=== PATIENT | female | born 1980 | race Caucasian/White ===

== ENCOUNTER 2016-06-15 21:21 | Emergency (ER) | payer MEDICAID ==
[~2016-06-15 21:21] MED LIST: ONDA1TAB16 PO; SSD1CRE TOP
[2016-06-15 21:23] VITALS: BP 142/85; PULSE 98; RESP 15; TEMP 98.3; O2SAT 98
== END 2016-06-15 22:02 | disposition left against medical advice (07) ==
LOC: NED 21:55
DX: Z53.21 Procedure and treatment not carried out due to patient leaving prior to being seen by health care provider (principal)
CPT/HCPCS: 99281

== ENCOUNTER 2016-09-29 14:48 | Emergency (ER) | payer SELFPAY ==
[~2016-09-29] VITALS: Ht 170.2 cm; Wt 90.0 kg
[2016-09-29 14:49] VITALS: BP 138/73; PULSE 103; RESP 14; TEMP 99; O2SAT 96
--- NOTE | 2016-09-29 15:00 | PD ---
Physical Exam Date Seen by Provider: September 29, 2016 Time Seen by Provider: 14:58 Narrative Pt presents with right lower abdominal pain, vaginal discharge, bleeding with intercourse. Symptoms started 2 weeks ago. Pt reports frequency but no dysuria. VSS, awaiting bed placement. Data Data Last Documented VS Vital Signs Date Time Temp Pulse Resp B/P Pulse Ox O2 Delivery O2 Flow Rate FiO2 09/29/16 14:49 99.0 103 14 138/73 96 MDM Supervised Visit with ELAINE: Florence Girard September 29, 2016 15:00
--- NOTE | 2016-09-29 16:25 | PD ---
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 35-year-old female with history of tubal ligation presents for evaluation. She reports that for the past year she has not been sexually active with her because he was away at rehabilitation. In July the began having sexual relations again. For the past 2 weeks she's been having some pain with intercourse, some spotting with intercourse, as well as white vaginal discharge and right sided pelvic pain. Pain is an aching pain that is constant. She endorses increased urinary frequency as well. Denies any dysuria, flank pain, fevers or chills, nausea or vomiting. Denies any other sexual partners. She has no other complaints at this time. 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) Diminished Hearing: No Diverticulitis: Yes Gastrointestinal Disorders: Yes (HX OF CROHNS DISEASE , ULCERATIVE COLITIS ) Hiatal Hernia: Yes Hypertension: Yes Inguinal Hernia: Yes Kidney Stones: Yes Psychiatric: Yes Reproductive: Yes Immunizations Current: Yes Ulcer: Yes Tetanus Vaccination: > 5 Years Influenza Vaccination: No ?: Not LMP: 08/24/16 : 6 Para: 3 Miscarriage: 2 : 1 Ovarian Cysts: Yes Dilation and Curettage (D&C): Yes Tubal Ligation: Yes (2011) Past Surgical History Abdominal Surgery: Yes (HERNIA REPAIR- NOVEMBER 2012) Cholecystectomy: Yes Gynecologic Surgery: Yes (D&C) Other Surgery: Yes (D&C ) Social History Alcohol Use: No Tobacco Use: Yes (1 PPD) Substance Use: No Allergies-Medications (Allergen,Severity, Reaction): Coded Allergies: No Known Allergies (Verified , 09/29/16) Reported Meds & Prescriptions Reported Meds & Active Scripts Active Fluconazole 150 Mg Tab 150 Mg PO ONCE Review of Systems Except as stated in HPI: all other systems reviewed are Neg Physical Exam Narrative GENERAL: Well-developed well-nourished female in no acute distress SKIN: Warm and dry. HEAD: Atraumatic. Normocephalic. EYES: Pupils equal and round. No scleral icterus. No injection or drainage. ENT: No nasal bleeding or discharge. Mucous membranes pink and moist. NECK: Trachea midline. No JVD. CARDIOVASCULAR: Regular rate and rhythm. No murmur appreciated. RESPIRATORY: No accessory muscle use. Clear to auscultation. Breath sounds equal bilaterally. GASTROINTESTINAL: Abdomen soft, minimal tenderness to palpation in the right lower quadrant without guarding. Pelvic examination performed in the presence of a female nurse: There is some yellow discharge noted in the vaginal canal. There is no cervical abnormality. There is no cervical motion tenderness. There is mild suprapubic and right adnexal tenderness without palpable mass. MUSCULOSKELETAL: No obvious deformities. NEUROLOGICAL: Awake and alert. No obvious cranial nerve deficits. Motor grossly within normal limits. Normal speech. PSYCHIATRIC: Appropriate mood and affect; insight and judgment normal. Data Data Last Documented VS Vital Signs Date Time Temp Pulse Resp B/P Pulse Ox O2 Delivery O2 Flow Rate FiO2 09/29/16 14:49 99.0 103 14 138/73 96 Orders Gc And Chlamydia Pcr (09/29/16 16:21) Wet Prep Profile (09/29/16 16:21) Urinalysis - C+S If Indicated (09/29/16 16:21) Ed Urine Pregnancytest Poc (09/29/16 16:21) Azithromycin Powd Pack (Zithromax Powd P (09/29/16 17:15) Ceftriaxone Inj (Rocephin Inj) (09/29/16 17:15) Lidocaine 1% Inj (50 Ml) (Xylocaine 1% I (09/29/16 17:15) Labs Laboratory Tests Test 09/29/16 16:30 Urine Color YELLOW Urine Turbidity CLEAR Urine pH 5.5 Urine Specific [place] 1.027 Urine Protein TRACE mg/dL Urine Glucose (UA) NEG mg/dL Urine Ketones NEG mg/dL Urine Occult Blood NEG Urine Nitrite NEG Urine Bilirubin NEG Urine Urobilinogen 2.0 MG/DL Urine Leukocyte Esterase NEG Urine RBC 1 /hpf Urine WBC 1 /hpf Urine Squamous Epithelial 2 /hpf Cells Urine Mucus FEW /lpf Microscopic Urinalysis Comment CULT NOT INDICATED Clue Cells (Wet Prep) NONE SEEN Vaginal Trichomonas (Wet Prep) NONE SEEN Vaginal Yeast (Wet Prep) NONE SEEN MDM Medical Decision Making Medical Screen Exam Complete: Yes Emergency Medical Condition: Yes Medical Record Reviewed: Yes Differential Diagnosis Cervicitis, cervical cancer, inflammatory disease, vaginitis, vaginosis, tubo- ovarian abscess, ectopic , cystitis, ovarian torsion Narrative Course 35-year-old female presents with 2 weeks of painful intercourse, some spotting during intercourse, right-sided pelvic pain, white vaginal discharge. This is in the setting of having recently began a sexual relationship with her again starting in July. Her abdomen is soft with minimal tenderness to palpation right lower quadrant. I don't suspect ovarian torsion or appendicitis. Pelvic examination is reassuring. She did have some yellow discharge. Wet prep is negative. Urinalysis is negative. Urine test is negative. Chlamydia and gonorrhea are pending. She will be treated with Rocephin and azithromycin pending results. She is requesting a prescription for fluconazole to prevent yeast infection. Recommended outpatient follow-up with an ENAMEL BUFFER. She is stable for discharge. Diagnosis Primary Impression: Dyspareunia in female Additional Impression: Vaginal discharge Referrals: [facility] Additional Instructions: Follow-up with an ENAMEL BUFFER for further outpatient testing. Return for any emergent medical conditions. Med/Other Pt SpecificInfo: Prescription(s) given Scripts Fluconazole 150 Mg [id number] Mg PO ONCE #1 TAB Ref 0 Prov:Brooke Sorenson DO 09/29/16 Disposition: 01 DISCHARGE HOME Condition: Stable Betito Collins September 29, 2016 16:25
[2016-09-29 17:13] LABS: BLOOD, URINE NEG (NEG); COMMENT (UR) CULT NOT INDICATED; CULTURE IF INDICATED CULT NOT INDICATED; GLUCOSE,URINE NEG (NEG); KETONE, URINE NEG (NEG); MUCUS URINE FEW /lpf (OCC); NITRITE,URINE NEG (NEG); PH, URINE 5.5 (5.0-8.5); SQUAMOUS EPITHELIAL CELL URINE 2 /hpf (0-5); URINE COLOR YELLOW (YELLW/STRAW)
[2016-09-29] MEDS ORDERED: AZITHROMYCIN PWD FOR SUSP 1 GM PACKET PO ONE (17:15)
[2016-09-29] MEDS ORDERED: cefTRIAXone 250 MG VIAL IM ONE (17:15)
[2016-09-29] MEDS ORDERED: LIDOCAINE HCL 1% 50 ML VIAL IM ONE (17:15)
[2016-09-29] MEDS ORDERED: FLUC150T PO (17:22)
[2016-09-29 18:22] VITALS: BP 133/70
[2016-09-29 19:12] LABS: CHLAMYDIA PCR NOT DETECTED (NOT DETECT); NEISSERIA PCR NOT DETECTED (NOT DETECT)
== END 2016-09-29 18:23 | disposition home or self-care (01) ==
LOC: NEPD 14:48
DX: N94.10 Unspecified dyspareunia (principal); I10 Essential (primary) hypertension; K50.90 Crohn's disease, unspecified, without complications; F17.210 Nicotine dependence, cigarettes, uncomplicated
CPT/HCPCS: 81001; 84703; 87210; 87491; 87591; 96372; 99284; J0696

== ENCOUNTER 2016-11-11 10:58 | Emergency (ER) | payer SELFPAY ==
[~2016-11-11] VITALS: Ht 170.2 cm; Wt 103.0 kg
[~2016-11-11 10:58] MED LIST changes: +FLUC150T PO; -ONDA1TAB16 PO; -SSD1CRE TOP
[2016-11-11 11:00] VITALS: BP 134/79; PULSE 85; RESP 15; TEMP 98.4; O2SAT 98
[2016-11-11] MEDS ORDERED: CIPR0.2S RIGHT EAR (11:17)
--- NOTE | 2016-11-11 11:21 | PD ---
HPI Chief Complaint: ENT Complaint Time Seen by Provider: 11:05 Travel History International Travel<30 days: No Contact w/Intl Traveler<30days: No Traveled to known affect area: No History of Present Illness HPI 36-year-old female presents to the emergency room for evaluation of right ear pain, drainage, and decreased hearing for the past week. Patient states 2 weeks ago she went swimming in the ocean and felt as though was stuck in her ear immediately afterward. States one week later, she developed clear drainage that has since turned foul smelling and purulent. Patient woke up this morning with a large amount of drainage on her pillow. States it is constant. She has associated 6/10 pain. She has been taking ibuprofen for pain with minimal relief in symptoms. Patient denies fever, chills, nausea, vomiting, or any other upper respiratory symptoms. 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) Diminished Hearing: No Diverticulitis: Yes Gastrointestinal Disorders: Yes (HX OF CROHNS DISEASE , ULCERATIVE COLITIS ) Hiatal Hernia: Yes Hypertension: Yes Inguinal Hernia: Yes Kidney Stones: Yes Psychiatric: Yes Reproductive: Yes Immunizations Current: Yes Ulcer: Yes Tetanus Vaccination: > 5 Years Influenza Vaccination: Yes ?: Not LMP: NOW : 6 Para: 3 Miscarriage: 2 : 1 Ovarian Cysts: Yes Dilation and Curettage (D&C): Yes Tubal Ligation: Yes (2011) Past Surgical History Abdominal Surgery: Yes (HERNIA REPAIR- NOVEMBER 2012) Cholecystectomy: Yes Gynecologic Surgery: Yes (D&C) Other Surgery: Yes (D&C ) Social History Alcohol Use: No Tobacco Use: Yes (1 PPD) Substance Use: No Allergies-Medications (Allergen,Severity, Reaction): Coded Allergies: No Known Allergies (Verified , 11/11/16) Reported Meds & Prescriptions Reported Meds & Active Scripts Active Ciprofloxacin Otic Drops 0.2% Soln 0.25 Ml RIGHT EAR BID Review of Systems Except as stated in HPI: all other systems reviewed are Neg Physical Exam Narrative GENERAL: Well-nourished, well-developed female in no acute distress. Afebrile. Ambulatory. SKIN: Focused skin assessment warm/dry. HEAD: Normocephalic. EYES: No scleral icterus. No injection or drainage. EARS: Bilateral pinnae within normal limits. Left external canal unremarkable, tympanic membrane without erythema, dullness or perforation. Right external canal is mildly edematous with mild to moderate drainage. Tympanic membrane is dull but not erythematous or perforated. NECK: Supple, trachea midline. No JVD or lymphadenopathy. CARDIOVASCULAR: Regular rate and rhythm without murmurs, gallops, or rubs. RESPIRATORY: Breath sounds equal bilaterally. No accessory muscle use. Data Data Last Documented VS Vital Signs Date Time Temp Pulse Resp B/P Pulse Ox O2 Delivery O2 Flow Rate FiO2 11/11/16 11:00 98.4 85 15 134/79 98 MDM Medical Decision Making Medical Screen Exam Complete: Yes Emergency Medical Condition: Yes Medical Record Reviewed: Yes Differential Diagnosis Otitis externa, eustachian tube dysfunction, perforation, otitis media Narrative Course 36-year-old female presents to the emergency room for evaluation of right ear pain, drainage, and decreased hearing for the past week. Patient states symptoms started slightly 2 weeks ago after swimming in the ocean and worsened. No systemic signs of infection. Vital signs stable. Patient is mild to moderate drainage on exam. External canal is slightly edematous, tympanic membrane is intact but dull. Patient discharged with ciprofloxacin eardrops and told to follow-up with a primary care physician or return for worsening symptoms. She understands and agrees to plan. Diagnosis Primary Impression: Right otitis externa Qualified Code: H60.331 - Acute swimmer's ear of right side Referrals: Ear / Nose / Throat Specialist Primary Care Physician Patient Instructions: General Instructions, Otitis Externa (ED) Additional Instructions: Rest and drink plenty of fluids. Apply drops to right ear twice daily for 7 days. Take ibuprofen with food as directed, as needed for pain. Follow-up with a primary care physician. Return to the emergency room for worsening symptoms. Med/Other Pt SpecificInfo: Prescription(s) given Scripts Ciprofloxacin Otic Drops 0.2% Soln0.25 Ml RIGHT EAR BID #1 BOX Ref 0 Prov:Rekha Alan MD 11/11/16 Disposition: 01 DISCHARGE HOME Condition: Stable Kaelyn Joshi Nov 11, 2016 11:21
== END 2016-11-11 11:30 | disposition home or self-care (01) ==
LOC: PHEFT 10:58
DX: H60.331 Swimmer's ear, right ear (principal); I10 Essential (primary) hypertension; F17.200 Nicotine dependence, unspecified, uncomplicated; Z86.59 Personal history of other mental and behavioral disorders; Z87.19 Personal history of other diseases of the digestive system; Z87.442 Personal history of urinary calculi; Z87.42 Personal history of other diseases of the female genital tract
CPT/HCPCS: 99283

== ENCOUNTER 2017-04-29 17:27 | Emergency (ER) | payer SELFPAY ==
[~2017-04-29] VITALS: Ht 167.6 cm; Wt 73.0 kg
[~2017-04-29 17:27] MED LIST changes: +CIPR0.2S RIGHT EAR; -FLUC150T PO
[2017-04-29 17:28] VITALS: BP 152/79; PULSE 91; RESP 15; TEMP 98.7; O2SAT 99
[2017-04-29] MEDS ORDERED: SODIUM CHLOR 0.9% 1000 ML INJ 1,000 ML IV ONE ×2 (18:22)
[2017-04-29] MEDS ORDERED: VANCOMYCIN INJ 1,000 MG in SODIUM CHLOR 0.9% 250 ML INJ 250 ML IV STA (18:22)
[2017-04-29] MEDS ORDERED: PIPERACIL-TAZO 4.5 GM PREMIX 100 ML IV STA (18:22)
--- NOTE | 2017-04-29 18:22 | PD ---
HPI Chief Complaint: Medical Clearance Time Seen by Provider: 17:58 Travel History International Travel<30 days: No Contact w/Intl Traveler<30days: No Traveled to known affect area: No History of Present Illness HPI 36-year-old female with history of IV drug use is brought in status post trying to get his to emergency for medical clearance. Patient has multiple erythematous swollen lesions to both forearms and feet with localized tenderness and crusty scabs. Drainage is noted at this time. Patient denies fever but has had chills for the past week. Patient states the last time she used IV drugs was yesterday. Patient denies nausea, vomiting, chest pain, or significant pain. Patient is here with her sister. She has no known drug allergies. 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) Diminished Hearing: No Diverticulitis: Yes Gastrointestinal Disorders: Yes (HX OF CROHNS DISEASE , ULCERATIVE COLITIS ) Hiatal Hernia: Yes Hypertension: Yes Inguinal Hernia: Yes Kidney Stones: Yes Psychiatric: Yes Reproductive: Yes Immunizations Current: Yes Ulcer: Yes : 6 Para: 3 Miscarriage: 2 : 1 Ovarian Cysts: Yes Dilation and Curettage (D&C): Yes Tubal Ligation: Yes (2011) Past Surgical History Abdominal Surgery: Yes (HERNIA REPAIR- NOVEMBER 2012) Cholecystectomy: Yes Gynecologic Surgery: Yes (D&C) Other Surgery: Yes (D&C ) Social History Alcohol Use: No Tobacco Use: Yes (1 PPD) Substance Use: No Allergies-Medications (Allergen,Severity, Reaction): Coded Allergies: No Known Allergies (Verified Allergy, Unknown, 04/29/17) Reported Meds & Prescriptions Reported Meds & Active Scripts Active Ciprofloxacin Otic Drops 0.2% Soln 0.25 Ml RIGHT EAR BID Review of Systems Except as stated in HPI: all other systems reviewed are Neg General / Constitutional: Positive: Chills, No: Fever Eyes: No: Visual changes HENT: No: Headaches, Vertigo, Lightheadedness, Sore Throat, Rhinitis, Rhinorrhea, Congestion, Nosebleed, Neck Stiffness, Neck Pain, Dental Difficulties, Earache Cardiovascular: No: Chest Pain or Discomfort Respiratory: No: Cough, Shortness of Breath, Wheezing Gastrointestinal: No: Nausea, Vomiting, Diarrhea, Abdominal Pain Genitourinary: No: Dysuria Musculoskeletal: No: Pain Skin: Positive Lesions (see history of present illness), No Rash Neurologic: No: Weakness Psychiatric: No: Depression Endocrine: No: Polydipsia Hematologic/Lymphatic: No: Easy Bruising Physical Exam Narrative GENERAL: Patient appears upset, but otherwise not septic. SKIN: Warm and dry. Patient has multiple old-appearing swollen, crusted, erythematous and warm lesions to both hands, forearms, and inner feet. No active drainage is noted. None of the lesions have active pointing. HEAD: Atraumatic. Normocephalic. EYES: Pupils equal and round. No scleral icterus. No injection or drainage. ENT: No nasal bleeding or discharge. Mucous membranes pink and moist. Pharynx is clear. Airway is patent. NECK: Trachea midline. Supple without lymphadenopathy. CARDIOVASCULAR: Regular rate and rhythm. No murmurs gallops or rubs appreciated. RESPIRATORY: No accessory muscle use. Clear to auscultation. Breath sounds equal bilaterally. GASTROINTESTINAL: Abdomen soft, non-tender, nondistended. Hepatic and splenic margins not palpable. MUSCULOSKELETAL: Extremities without clubbing, cyanosis, or edema. No obvious deformities. NEUROLOGICAL: Awake and alert. No obvious cranial nerve deficits. Motor grossly within normal limits. Five out of 5 muscle strength in the arms and legs. Normal speech. PSYCHIATRIC: Appropriate mood and affect; insight and judgment normal. Data Data Last Documented VS Vital Signs Date Time Temp Pulse Resp B/P (MAP) Pulse Ox O2 Delivery O2 Flow Rate FiO2 04/29/17 17:28 98.7 91 15 152/79 (103) 99 Orders Orders Sepsis Workup Initiated (04/29/17 ) Electrocardiogram (04/29/17 18:22) Complete Blood Count With Diff (04/29/17 18:22) Comprehensive Metabolic Panel (04/29/17 18:22) Prothrombin Time / Inr (Pt) (04/29/17 18:22) Act Partial Throm Time (Ptt) (04/29/17 18:22) Lactic Acid Sepsis Protocol (04/29/17 18:22) Urinalysis - C+S If Indicated (04/29/17 18:22) Blood Culture (04/29/17 18:22) Chest, Single Ap (04/29/17 18:22) Ecg Monitoring (04/29/17 18:22) Iv Access Insert/Monitor (04/29/17 18:22) Oximetry (04/29/17 18:22) Oxygen Administration (04/29/17 18:22) Piperacil-Tazo 4.5 Gm Premix (Zosyn 4.5 (04/29/17 18:22) Vancomycin Inj (Vancomycin Inj) (04/29/17 18:22) Sodium Chlor 0.9% 1000 Ml Inj (Ns 1000 M (04/29/17 18:22) Sodium Chlor 0.9% 1000 Ml Inj (Ns 1000 M (04/29/17 18:22) Ed Urine Pregnancytest Poc (04/29/17 18:30) Vascular Access Team Consult/P PRN (04/29/17 18:53) Vascular Poc Ultrasound (04/29/17 ) MDM Medical Decision Making Medical Screen Exam Complete: Yes Emergency Medical Condition: Yes Medical Record Reviewed: Yes Differential Diagnosis IV drug abuse. Cellulitis. Possible sepsis. Narrative Course Patient appears medically stable at time of exam. Sepsis protocol was initiated despite his lack of recorded fever based on her history and clinical presentation. Labs are obtained including CBC, CMP, lactic acid, blood cultures 2. Urinalysis and urine was checked as well. Chest x-ray is ordered as well as EKG. IV access is obtained and the patient is given 4.5 g of Zosyn IV as well as 1000 mg vancomycin IV. 1900 hours labs are pending. Care is turned over to Reuben Li PAC, and final disposition will be determined by him. Condition: Stable Darron Quigley Apr 29, 2017 18:22
--- NOTE | 2017-04-29 18:49 | RADRPT ---
EXAM DATE/TIME: 04/29/2017 18:29 [facility] COMPARISON: No previous studies available for comparison. INDICATIONS : Fever, chills today. MEDICAL HISTORY : None. SURGICAL HISTORY : None. ENCOUNTER: Initial ACUITY: 1 day PAIN SCORE: 0/10 LOCATION: Bilateral chest FINDINGS: A single view of the chest demonstrates the lungs to be symmetrically aerated without evidence of mas s, infiltrate or effusion. The cardiomediastinal contours are unremarkable. Osseous structures are intact. CONCLUSION: No acute disease. Reuben Bocanegra MD on April 29, 2017 at 18:47 Board Certified Radiologist. This report was verified electronically.
[2017-04-29 19:25] LABS: AUTOMATED NEUTROPHIL # 6.8 TH/MM3 (1.8-7.7); BASOPHIL # 0.1 TH/MM3 (0-0.2); BASOPHIL % 0.7 % (0.0-2.0); EOSINOPHIL # 0.2 TH/MM3 (0-0.4); HEMATOCRIT 34.3 % (35.0-46.0); HEMO FLAGS DIFF FINAL; LYMPH % 19.5 % (9.0-44.0); LYMPHOCYTE # 1.9 TH/MM3 (1.0-4.8); MEAN CORPUSCULAR HEMOGLOBIN 28.4 PG (27.0-34.0); MEAN CORPUSCULAR HGB CONC 34.2 % (32.0-36.0); MONO % 7.1 % (0.0-8.0); NEUT % 70.7 % (16.0-70.0); PLATELET COUNT 321 TH/MM3 (150-450); RED BLOOD COUNT 4.13 MIL/MM3 (4.00-5.30); RED CELL DISTRIBUTION WIDTH 13.5 % (11.6-17.2); WHITE BLOOD COUNT 9.7 TH/MM3 (4.0-11.0)
[2017-04-29 19:32] LABS: BACTERIA, URINE MANY /hpf; BLOOD, URINE NEG (NEG); COMMENT (UR) CATH-CULTURE IND; CULTURE IF INDICATED CATH CULTURE IND; GLUCOSE,URINE NEG (NEG); HYALINE CAST, URINE 1 /lpf (RARE); KETONE, URINE NEG (NEG); MUCUS URINE FEW /lpf (OCC); NITRITE,URINE POS (NEG); SQUAMOUS EPITHELIAL CELL URINE 9 /hpf (0-5); URINE COLOR YELLOW (YELLW/STRAW)
[2017-04-29 19:38] LABS: ANION GAP 8 MEQ/L (5-15); AST (GOT) 17 U/L (15-37); BLOOD UREA NITROGEN 4 MG/DL (7-18); CHLORIDE 106 MEQ/L (98-107); GLOMERULAR FILTRATION RATE 99 ML/MIN (>89); POTASSIUM 3.5 MEQ/L (3.5-5.1); SODIUM (NA) 140 MEQ/L (136-145)
[2017-04-29 19:39] LABS: ALT (GPT) 25 U/L (10-53); APTT (PATIENT) 27.3 SEC (24.3-30.1)
[2017-04-29 19:41] LABS: ALKALINE PHOSPHATASE 72 U/L (45-117); TOTAL BILIRUBIN ADULT 0.3 MG/DL (0.2-1.0)
[2017-04-29] MEDS ORDERED: BACT800T5 PO (19:57)
[2017-04-29] MEDS ORDERED: CLEO300C2 PO (19:57)
--- NOTE | 2017-04-29 20:03 | PD ---
Physical Exam Date Seen by Provider: Apr 29, 2017 Time Seen by Provider: 19:59 Data Data Last Documented VS Vital Signs Date Time Temp Pulse Resp B/P (MAP) Pulse Ox O2 Delivery O2 Flow Rate FiO2 04/29/17 17:28 98.7 91 15 152/79 (103) 99 Orders Orders Sepsis Workup Initiated (04/29/17 ) Electrocardiogram (04/29/17 18:22) Complete Blood Count With Diff (04/29/17 18:22) Comprehensive Metabolic Panel (04/29/17 18:22) Prothrombin Time / Inr (Pt) (04/29/17 18:22) Act Partial Throm Time (Ptt) (04/29/17 18:22) Lactic Acid Sepsis Protocol (04/29/17 18:22) Urinalysis - C+S If Indicated (04/29/17 18:22) Blood Culture (04/29/17 18:22) Chest, Single Ap (04/29/17 18:22) Ecg Monitoring (04/29/17 18:22) Iv Access Insert/Monitor (04/29/17 18:22) Oximetry (04/29/17 18:22) Oxygen Administration (04/29/17 18:22) Piperacil-Tazo 4.5 Gm Premix (Zosyn 4.5 (04/29/17 18:22) Vancomycin Inj (Vancomycin Inj) (04/29/17 18:22) Sodium Chlor 0.9% 1000 Ml Inj (Ns 1000 M (04/29/17 18:22) Sodium Chlor 0.9% 1000 Ml Inj (Ns 1000 M (04/29/17 18:22) Ed Urine Pregnancytest Poc (04/29/17 18:30) Vascular Access Team Consult/P PRN (04/29/17 18:53) Vascular Poc Ultrasound (04/29/17 ) Urine Culture (04/29/17 19:00) Ed Discharge Order (04/29/17 19:58) Labs Laboratory Tests Test 04/29/17 19:00 04/29/17 19:08 Urine Color YELLOW Urine Turbidity HAZY Urine pH 7.0 Urine Specific [place] 1.016 Urine Protein TRACE mg/dL Urine Glucose (UA) NEG mg/dL Urine Ketones NEG mg/dL Urine Occult Blood NEG Urine Nitrite POS Urine Bilirubin NEG Urine Urobilinogen 4.0 MG/DL Urine Leukocyte Esterase TRACE Urine RBC 1 /hpf Urine WBC 9 /hpf Urine Squamous Epithelial Cells 9 /hpf Urine Amorphous Sediment RARE Urine Bacteria MANY /hpf Urine Hyaline Casts 1 /lpf Urine Mucus FEW /lpf Microscopic Urinalysis Comment CATH-CULTURE IND White Blood Count 9.7 TH/MM3 Red Blood Count 4.13 MIL/MM3 Hemoglobin 11.7 GM/DL Hematocrit 34.3 % Mean Corpuscular Volume 83.0 FL Mean Corpuscular Hemoglobin 28.4 PG Mean Corpuscular Hemoglobin Concent 34.2 % Red Cell Distribution Width 13.5 % Platelet Count 321 TH/MM3 Mean Platelet Volume 7.6 FL Neutrophils (%) (Auto) 70.7 % Lymphocytes (%) (Auto) 19.5 % Monocytes (%) (Auto) 7.1 % Eosinophils (%) (Auto) 2.0 % Basophils (%) (Auto) 0.7 % Neutrophils # (Auto) 6.8 TH/MM3 Lymphocytes # (Auto) 1.9 TH/MM3 Monocytes # (Auto) 0.7 TH/MM3 Eosinophils # (Auto) 0.2 TH/MM3 Basophils # (Auto) 0.1 TH/MM3 CBC Comment DIFF FINAL Differential Comment Prothrombin Time 10.0 SEC Prothromb Time International Ratio 1.0 RATIO Activated Partial Thromboplast Time 27.3 SEC Blood Urea Nitrogen 4 MG/DL Creatinine 0.68 MG/DL Random Glucose 96 MG/DL Total Protein 8.2 GM/DL Albumin 3.1 GM/DL Calcium Level 8.3 MG/DL Alkaline Phosphatase 72 U/L Aspartate Amino Transf (AST/SGOT) 17 U/L Alanine Aminotransferase (ALT/SGPT) 25 U/L Total Bilirubin 0.3 MG/DL Sodium Level 140 MEQ/L Potassium Level 3.5 MEQ/L Chloride Level 106 MEQ/L Carbon Dioxide Level 26.0 MEQ/L Anion Gap 8 MEQ/L Estimat Glomerular Filtration Rate 99 ML/MIN Lactic Acid Level 1.8 mmol/L [facility] Medical Record Reviewed: Yes Supervised Visit with ELAINE: No Interpretation(s) CBC & BMP Diagram 04/29/17 19:08 Total Protein 8.2, Albumin 3.1 L, Calcium Level 8.3 L, Alkaline Phosphatase 72, Aspartate Amino Transf (AST/SGOT) 17, Alanine Aminotransferase (ALT/SGPT) 25, Total Bilirubin 0.3 Venous lactate 1.8 Last 24 hours Impressions Chest X-Ray 04/29/17 1742 Signed Impressions: Service Date/Time: Saturday, April 29, 2017 18:29 - CONCLUSION: No acute disease. Reuben Bocanegra MD Differential Diagnosis MDM: High Differential diagnoses: Abscess, folliculitis, cellulitis, lymphangitis, abrasion, contact dermatitis, sepsis Narrative Course I was asked to review the patient's laboratory tests and medically cleared him for [facility]. It was felt that if the patient's lactic acid was negative and laboratory tests weren't limits that the patient could be medically cleared and discharged. The patient was given IV vancomycin and Zosyn. She'll be discharged on Bactrim DS and clindamycin 300 mg. This is cellulitis, IV drug abuse Diagnosis Primary Impression: Cellulitis Qualified Codes: L03.90 - Cellulitis, unspecified Additional Impression: Intravenous drug abuse Patient Instructions: General Instructions Additional Instruction: Rest. Elevation. Daily wound care with soap and water apply antibiotic. Clindamycin and Bactrim DS. Follow-up with [facility] for detox. Med/Other Pt SpecificInfo: Prescription(s) given, Wound Care Scripts Clindamycin (Cleocin) 300 Mg Cap 300 MG PO Q6H for Infection for 10 Days, #40 CAP 0 Refills Prov: Mino Awad MD 04/29/17 Sulfamethoxazole-Trimethoprim (Bactrim DS) 800-160 Mg Tab 1 TAB PO BID for Infection, #20 TAB 0 Refills Prov: Mino Awad MD 04/29/17 Disposition: 01 DISCHARGE HOME Condition: Stable Reuben Suarez Apr 29, 2017 20:03
--- NOTE | 2017-04-30 12:34 | EKG ---
Date Performed: 04/29/2017 Time Performed: 18:45:53 PTAGE: 36 years EKG: Sinus rhythm NORMAL ECG INTERPRETATION BASED ON A DEFAULT AGE OF 42 YEARS PREVIOUS TRACING : 05/24/2011 14.53 Compared to prior tracing no significant change DOCTOR: Miguel Kam Interpretating Date/Time 04/30/2017 12:32:32
== END 2017-04-29 23:00 | disposition home or self-care (01) ==
LOC: NEPD 17:27
DX: L03.90 Cellulitis, unspecified (principal); F19.10 Other psychoactive substance abuse, uncomplicated; F17.200 Nicotine dependence, unspecified, uncomplicated; N39.0 Urinary tract infection, site not specified; B96.20 Unspecified Escherichia coli [E. coli] as the cause of diseases classified elsewhere; I10 Essential (primary) hypertension
CPT/HCPCS: 71010; 80053; 81001; 83605; 84703; 85025; 85610; 85730; 87040; 87077; 87086; 87186; 93005; 96374; 96375; 99285; J2543; J3370; J7030; J7050